=== PATIENT | female | born 1945 | race Caucasian/White ===

== ENCOUNTER → 2018-12-04 | Outpatient (CLI) | payer MEDICARE, OTHER ==
[~2018-12-04] MED LIST: ATOR20 PO; BUDE6HFA INH; CEPH500; CHEMOTHERAPY; CLON.5 PO; CLON1 PO; CLOP75 PO; DULO30 PO; ELIQUIS5 MG; FAMO40 PO; HYDACE5; HYDACE5 PO; HYDACE5325 PO; MIRT15 PO; NEBI5 PO; NITR.6SL SL; OLAN5; ONDA4 PO; OXYACE5T PO; OXYACE7.5T PO; OXYC10ER PO; PRED5 PO; PROM25 PO; Prednisone1 MG PO; RXCLIN PO; SERT100 PO; SIMV20 PO; SULF500 PO; SULF500A PO
== END | disposition home or self-care (01) ==
LOC: LAB SHORT 10:45 → LAB 10:45 → LAB SHORT 12-06 12:15
DX: N39.0 Urinary tract infection, site not specified (principal)
CPT/HCPCS: 87077; 87086; 87147; 87186

== ENCOUNTER 2018-12-13 07:04 | Emergency (ER) | payer MEDICARE, OTHER ==
[~2018-12-13] VITALS: Ht 162.6 cm; Wt 72.6 kg
[~2018-12-13 07:04] MED LIST changes: -ELIQUIS5 MG
[2018-12-13] MEDS ORDERED: ELIQUIS5 MG (07:20)
== END 2018-12-13 08:42 | disposition home or self-care (01) ==
LOC: ER 07:04
DX: R04.0 Epistaxis (principal); Z88.5 Allergy status to narcotic agent; Z88.1 Allergy status to other antibiotic agents; Z88.8 Allergy status to other drugs, medicaments and biological substances; Z79.899 Other long term (current) drug therapy; Z79.891 Long term (current) use of opiate analgesic; F31.9 Bipolar disorder, unspecified; J44.9 Chronic obstructive pulmonary disease, unspecified; I25.2 Old myocardial infarction; F17.200 Nicotine dependence, unspecified, uncomplicated; Z85.118 Personal history of other malignant neoplasm of bronchus and lung
CPT/HCPCS: 99283

== ENCOUNTER 2019-03-21 11:39 | Day surgery (SDC) | payer MEDICARE, OTHER ==
[~2019-03-21 11:39] MED LIST changes: +ELIQUIS5 MG
--- NOTE | 2019-03-21 12:14 | NUR ---
History, Chart, Medications and Allergies reviewed before start of procedure. Lungs clear T/O to Auscultation. Patient confirms NPO status and agrees with scheduled surgery.
--- NOTE | 2019-03-21 12:18 | NUR ---
PT C/O PAIN IN HER HANDS STATES SHE HAS ARTHRITIS.
--- NOTE | 2019-03-21 13:57 | NUR ---
Ambulatory in Day Surgery TO BATHROOM.
--- NOTE | 2019-03-21 14:11 | NUR ---
DR. EDNE BACK TO SEE PT. REPRTS THAT PATIENT CAN GO ONCE SHE CAN TOLERATED LIQUIDS WITHOUT DIFFICULTY AND WHEN PT HAS A RIDE HOME.
--- NOTE | 2019-03-21 14:13 | NUR ---
PT ABLE TO DRINK PEPSI WITHOUT DIFFULTY. HER SON HELENE CALLED AND WILL BE COMING TO PICK HER UP SHORTLY.
== END 2019-03-21 23:23 | disposition home or self-care (01) ==
LOC: ORSCMMR 11:39 → ORD 12:30 → ORSCMMR 23:23
PROVIDERS: Internal Medicine Critical Care Medicine
PROC: 0B9F8ZX Drainage of Right Lower Lung Lobe, Via Natural or Artificial Opening Endoscopic, Diagnostic (ICD-10-PCS; principal; 2019-03-21 12:30)
DX: R91.8 Other nonspecific abnormal finding of lung field (principal); R04.2 Hemoptysis; Z87.891 Personal history of nicotine dependence; J44.9 Chronic obstructive pulmonary disease, unspecified; Z85.118 Personal history of other malignant neoplasm of bronchus and lung; Z79.899 Other long term (current) drug therapy; Z79.82 Long term (current) use of aspirin
CPT/HCPCS: 87070; 87077; 87185; 87205; 88108; 88312; J2250; J3010; J7120

== ENCOUNTER → 2019-05-18 | Outpatient (CLI) | payer MEDICARE, OTHER | END | disposition home or self-care (01) | LOC: LAB EV 14:57 | DX: R05 Cough (principal) | CPT/HCPCS: 87070; 87077; 87186; 87205 ==

== ENCOUNTER → 2019-10-10 | Outpatient (CLI) | payer MEDICARE, OTHER | LOC: LAB 10:15 → LAB SHORT 10:15 | DX: N39.0 Urinary tract infection, site not specified (principal) | CPT/HCPCS: 87077; 87086; 87186 ==

== ENCOUNTER → 2019-10-21 | Outpatient (CLI) | payer MEDICARE, OTHER | END | disposition home or self-care (01) | DX: N39.0 Urinary tract infection, site not specified (principal) ==

== ENCOUNTER → 2019-11-14 | Outpatient (CLI) | payer MEDICARE, OTHER | END | disposition home or self-care (01) | LOC: LAB SHORT 12:20 → LAB 12:20 | DX: R35.0 Frequency of micturition (principal) | CPT/HCPCS: 87086 ==

== ENCOUNTER → 2020-03-27 | Outpatient (CLI) | payer MEDICARE, OTHER | END | disposition home or self-care (01) | LOC: LAB SHORT 11:00 → LAB 11:00 | DX: A28.0 Pasteurellosis (principal); R05 Cough | CPT/HCPCS: 87070; 87077; 87185; 87205 ==

== ENCOUNTER 2020-06-26 16:10 | Emergency (ER) | payer MEDICARE, OTHER ==
[~2020-06-26] VITALS: Ht 162.6 cm; Wt 80.7 kg
[2020-06-26 17:26] LABS: Alanine Aminotransfer (ALT/SGP 32 U/L (12-78); Albumin, Blood 3.6 g/dL (3.4-5.0); Albumin/Globulin Ratio 0.9 (0.8-1.8); Alk Phos 124 U/L (50-136); Anion Gap 4 mmol/L (6-16); Aspartate Aminotrans (AST/SGOT 51 U/L (12-37); Bilirubin, Total 0.4 mg/dL (0.1-1.0); Blood Urea Nitrogen 22 mg/dL (8-24); Bun/Creatinine Ratio 26.2 (12.0-20.0); CO2, Blood 27 mmol/L (21-32); Calcium, Blood 9.3 mg/dL (8.5-10.1); Chloride, Blood 107 mmol/L (98-108); Creatinine, Blood 0.84 mg/dL (0.40-1.00); Globulin, Blood 3.9 g/dL (2.2-4.0); Glomerular Filtration Rate >60 (60-); Glucose, Blood 84 mg/dL (70-99); Potassium, Blood 5.2 mmol/L (3.5-5.5); Sodium, Blood 138 mmol/L (136-145); Total Protein, Blood 7.5 g/dL (6.4-8.2)
== END 2020-06-26 17:48 | disposition home or self-care (01) ==
LOC: ER 16:10
PROVIDERS: Emergency Medicine
DX: S00.83XA Contusion of other part of head, initial encounter (principal); Z79.01 Long term (current) use of anticoagulants; Z79.52 Long term (current) use of systemic steroids; Z79.899 Other long term (current) drug therapy; Z88.1 Allergy status to other antibiotic agents; Z88.5 Allergy status to narcotic agent; Z88.8 Allergy status to other drugs, medicaments and biological substances; W01.198A Fall on same level from slipping, tripping and stumbling with subsequent striking against other object, initial encounter
CPT/HCPCS: 36415; 70450; 71046; 80053; 99284-25